=== PATIENT | female | born 2000 | race Caucasian/White ===

== ENCOUNTER 2019-02-13 23:41 | Emergency (ER) | payer BC ==
[~2019-02-13] VITALS: Ht 180.3 cm; Wt 83.3 kg
[2019-02-14] MEDS ORDERED: dexameTHASONE 20 MG/5 ML VIAL (J1100) IV ONE (00:15)
[2019-02-14] MEDS: IPRATROPIUM 0.5MG/ALBUTEROL 2.5MG INH SOL UD 3ML (DUONEB)(J7620) NEB SCH ×3 (00:49→01:33)
[2019-02-14 01:13] LABS: ABG HCO3 20.1 MEQ/L (22.0-26.0); ABG O2 SATURATION 99.3 % (95.0-99.0); ABG PARTIAL PRESSURE CO2 30.1 mmHg (35.0-45.0); ABG PARTIAL PRESSURE O2 157.2 mmHg (75.0-100.0); ABG STANDARD HCO3 22.1 MEQ/L (22.0-26.0); ABG pH (ARTERIAL) 7.442 UNITS (7.350-7.450)
[2019-02-14] MEDS ORDERED: PRED20TA PO (03:09)
[2019-02-14 03:19] VITALS: BP 120/56
--- NOTE | 2019-02-14 08:12 | REP ---
Chest x-ray: Two views. History: Dyspnea . Comparison study: No comparison study . Findings: The lungs are well inflated and free of infiltrate. The pleural angles are sharp. The heart size is normal. Pulmonary vasculature is not increased. No significant bony abnormality is seen. Impression: Negative chest x-ray. Electronically Signed by Isidoro Ceja MD 02/14/2019 08:03 A
== END 2019-02-14 03:39 | disposition home or self-care (01) ==
LOC: M ED 23:41
DX: J40 Bronchitis, not specified as acute or chronic (principal); E27.1 Primary adrenocortical insufficiency; I95.1 Orthostatic hypotension
CPT/HCPCS: 36600; 71046; 82803; 94640; 96374; 99284; J1100